=== PATIENT | male | born 1980 | race Caucasian/White ===

== ENCOUNTER 2018-04-27 04:54 | Emergency (ER) | payer SELFPAY ==
[2018-04-27] MEDS ORDERED: IBUPROFEN 200 MG TAB PO ONE (06:08)
--- NOTE | 2018-04-27 06:15 | EDPHYS ---
Physician Documentation [facility] Name: Chad Lundberg Age: 37 yrs Sex: Male : 1980 Arrival Date: 04/27/2018 Time: 04:58 Bed 20 Private MD: ED Physician Diego Avila HPI: 04/27 05:45 This 37 yrs old Male presents to ER via Wheelchair with complaints of Ankle king Injury. 05:45 The patient presents with decreased range of motion, pain, that is acute. The king complaints affect the right ankle. Onset: The symptoms/episode began/occurred 1 week(s) ago. Context: The problem was sustained at home, resulted from. Associated signs and symptoms: The patient has no apparent associated signs or symptoms. Modifying factors: The symptoms are alleviated by elevation of extremity, the symptoms are aggravated by movement. Severity of symptoms: At their worst the symptoms were moderate, in the emergency department the symptoms are unchanged. Historical: - Allergies: 05:00 No Known Allergies; jb4 - Home Meds: 05:00 None [Active]; jb4 - PMHx: 05:00 Hernia; jb4 - PSHx: 05:00 Hernia repair; jb4 - Immunization history:: Adult Immunizations not up to date. - Social history:: Smoking status: Patient uses tobacco products, denies chronic smoking, but will smoke occasionally, Patient uses alcohol, but reports only rare drinking. - Ebola Screening: : No symptoms or risks identified at this time. - Family history:: not pertinent. ROS: 05:45 Constitutional: Negative for fever, chills, and weight loss, Eyes: Negative for injury, king pain, redness, and discharge, ENT: Negative for injury, pain, and discharge, Neck: Negative for injury, pain, and swelling, Cardiovascular: Negative for chest pain, palpitations, and edema, Respiratory: Negative for shortness of breath, cough, wheezing, and pleuritic chest pain, Abdomen/GI: Negative for abdominal pain, nausea, vomiting, diarrhea, and constipation, Back: Negative for injury and pain, : Negative for injury, bleeding, discharge, and swelling, Skin: Negative for injury, rash, and discoloration, Neuro: Negative for headache, weakness, numbness, tingling, and seizure, Psych: Negative for depression, anxiety, suicide ideation, homicidal ideation, and hallucinations, Allergy/Immunology: Negative for hives, rash, and allergies, Endocrine: Negative for neck swelling, polydipsia, polyuria, polyphagia, and marked weight changes, Hematologic/Lymphatic: Negative for swollen nodes, abnormal bleeding, and unusual bruising. 05:45 MS/extremity: Positive for injury or acute deformity, decreased range of motion, of the right ankle and anterior aspect of right ankle. Exam: 05:45 Constitutional: This is a well developed, well nourished patient who is awake, alert, king and in no acute distress. Head/Face: Normocephalic, atraumatic. Eyes: Pupils equal round and reactive to light, extra-ocular motions intact. Lids and lashes normal. Conjunctiva and sclera are non-icteric and not injected. Cornea within normal limits. Periorbital areas with no swelling, redness, or edema. ENT: Nares patent. No nasal discharge, no septal abnormalities noted. Tympanic membranes are normal and external auditory canals are clear. Oropharynx with no redness, swelling, or masses, exudates, or evidence of obstruction, uvula midline. Mucous membranes moist. Neck: Trachea midline, no thyromegaly or masses palpated, and no cervical lymphadenopathy. Supple, full range of motion without nuchal rigidity, or vertebral point tenderness. No Meningismus. Chest/axilla: Normal chest wall appearance and motion. Nontender with no deformity. No lesions are appreciated. Cardiovascular: Regular rate and rhythm with a normal S1 and S2. No gallops, murmurs, or rubs. Normal PMI, no JVD. No pulse deficits. Respiratory: Lungs have equal breath sounds bilaterally, clear to auscultation and percussion. No rales, rhonchi or wheezes noted. No increased work of breathing, no retractions or nasal flaring. Abdomen/GI: Soft, non-tender, with normal bowel sounds. No distension or tympany. No guarding or rebound. No evidence of tenderness throughout. Back: No spinal tenderness. No costovertebral tenderness. Full range of motion. Male : Normal genitalia with no discharge or lesions. Skin: Warm, dry with normal turgor. Normal color with no rashes, no lesions, and no evidence of cellulitis. Neuro: Awake and alert, GCS 15, oriented to person, place, time, and situation. Cranial nerves II-XII grossly intact. Motor strength 5/5 in all extremities. Sensory grossly intact. Cerebellar exam normal. Normal gait. Psych: Awake, alert, with orientation to person, place and time. Behavior, mood, and affect are within normal limits. 05:45 Musculoskeletal/extremity: Extremities: noted in the right ankle and anterior aspect of right ankle: decreased ROM, pain. Vital Signs: 05:00 BP 131 / 88; Pulse 93; Resp 16; Temp 98.5(O); Pulse Ox 98% on R/A; Weight 81.65 kg (R); [facility] Height 5 ft. 10 in. (177.80 cm) (R); Pain 0/10; 06:00 BP 127 / 80; Pulse 90; Resp 16; Pulse Ox 97% on R/A; [facility] 05:00 Body Mass Index 25.83 (81.65 kg, 177.80 cm) [facility] MDM: 05:42 Patient medically screened. [facility] 05:49 Data reviewed: vital signs, nurses notes, radiologic studies, plain films. [facility] 04/27 05:38 Order name: XRAY Ankle RIGHT 3 view [facility] 04/27 05:45 Order name: Ice pack; Complete Time: 06:02 [facility] 04/27 06:14 Order name: Walking boot: short; Complete Time: 06:49 [facility] Administered Medications: 06:13 Drug: Motrin 600 mg Route: PO; [facility] 06:50 Follow up: Response: No adverse reaction; Pain is decreased [facility] Disposition: 04/27/18 06:15 Discharged to Home. Impression: Sprain of ankle - right. - Condition is Stable. - Discharge Instructions: Ankle Sprain. - Prescriptions for Ibuprofen 600 mg Oral Tablet - take 1 tablet by ORAL route every 6 hours As needed take with food; 20 tablet. Tylenol- Codeine #3 300-30 mg Oral Tablet - take 2 tablet by ORAL route every 6 hours As needed; 30 tablet. - Medication Reconciliation Form, Thank You Letter, Antibiotic Education, Prescription Opioid Use form. - Follow up: Private Physician; When: 2 - 3 days; Reason: Recheck today's complaints, Continuance of care, Re-evaluation by your physician. Follow up: Johnnie Raygoza MD; When: 2 - 3 days; Reason: Recheck today's complaints, Re-evaluation by your physician. - Problem is new. - Symptoms have improved. Signatures: Dispatcher [employer] Diego Sloan MD MD cha Bryson, James RN RN jb4 Corrections: (The following items were deleted from the chart) 06:16 06:15 04/27/2018 06:15 Discharged to Home. Impression: Sprain of ankle - right. king Condition is Stable. Forms are Medication Reconciliation Form, Thank You Letter, Antibiotic Education, Prescription Opioid Use. Follow up: Private Physician; When: 2 - 3 days; Reason: Recheck today's complaints, Continuance of care, Re-evaluation by your physician. Problem is new. Symptoms have improved. [facility] 06:52 06:16 04/27/2018 06:15 Discharged to Home. Impression: Sprain of ankle - right. jb4 Condition is Stable. Discharge Instructions: Ankle Sprain. Prescriptions for Ibuprofen 600 mg Oral Tablet - take 1 tablet by ORAL route every 6 hours As needed take with food; 20 tablet, Tylenol-Codeine #3 300-30 mg Oral Tablet - take 2 tablet by ORAL route every 6 hours As needed; 30 tablet. and Forms are Medication Reconciliation Form, Thank You Letter, Antibiotic Education, Prescription Opioid Use. Follow up: Private Physician; When: 2 - 3 days; Reason: Recheck today's complaints, Continuance of care, Re-evaluation by your physician. Follow up: Johnnie Raygoza; When: 2 - 3 days; Reason: Recheck today's complaints, Re-evaluation by your physician. Problem is new. Symptoms have improved. king
--- NOTE | 2018-04-27 06:15 | ER ---
Nurse's Notes [facility] Name: Chad Lundberg Age: 37 yrs Sex: Male : 1980 Arrival Date: 04/27/2018 Time: 04:58 Bed 20 Private MD: Diagnosis: Sprain of ankle-right Presentation: 04/27 05:00 Presenting complaint: Patient states: I fell from a ladder 2 weeks ago and injured my jb4 right ankle. I was about 6 feet in the air. I felt a pop in my right ankle and I still cannot put weight on it. 05:00 Transition of care: patient was not received from another setting of care. Onset of jb4 symptoms was April 14, 2017. Risk Assessment: Do you want to hurt yourself or someone else? Patient reports no desire to harm self or others. Initial Sepsis Screen: Does the patient meet any 2 criteria? HR > 90 bpm. Yes Does the patient have a suspected source of infection? No. Patient's initial sepsis screen is negative. Care prior to arrival: None. 05:00 Method Of Arrival: Wheelchair jb4 05:00 Acuity: LOUANN 4 jb4 Triage Assessment: 05:00 General: Appears in no apparent distress. comfortable, Behavior is calm, cooperative, jb4 appropriate for age. Pain: Complains of pain in right ankle Pain does not radiate. Pain currently is 0 out of 10 on a pain scale. at worst was 10 out of 10 on a pain scale. Quality of pain is described as sharp, Pain began 2 weeks ago Is intermittent, Alleviated by rest, Aggravated by weight bearing. EENT: No signs and/or symptoms were reported regarding the EENT system. Neuro: Level of Consciousness is awake, alert, obeys commands, Oriented to person, place, time, situation. Cardiovascular: Patient's skin is warm and dry. Respiratory: Airway is patent Respiratory effort is even, unlabored, Respiratory pattern is regular, symmetrical. GI: No signs and/or symptoms were reported involving the gastrointestinal system. : No signs and/or symptoms were reported regarding the genitourinary system. Derm: Skin is intact, Skin is pink, warm \T\ dry. Musculoskeletal: Circulation, motion, and sensation intact. Range of motion: limited in right ankle Swelling present in right ankle. Historical: - Allergies: 05:00 No Known Allergies; jb4 - Home Meds: 05:00 None [Active]; jb4 - PMHx: 05:00 Hernia; jb4 - PSHx: 05:00 Hernia repair; jb4 - Immunization history:: Adult Immunizations not up to date. - Social history:: Smoking status: Patient uses tobacco products, denies chronic smoking, but will smoke occasionally, Patient uses alcohol, but reports only rare drinking. - Ebola Screening: : No symptoms or risks identified at this time. - Family history:: not pertinent. Screenin:00 Abuse screen: Denies threats or abuse. Nutritional screening: No deficits noted. jb4 Tuberculosis screening: No symptoms or risk factors identified. Fall Risk Gait- Impaired (20 pts.). Total Pickard Fall Scale indicates No Risk (0-24 pts). Assessment: 05:00 General: see triage assessment. jb4 06:00 Reassessment: Patient appears in no apparent distress at this time. Patient and/or jb4 family updated on plan of care and expected duration. Pain level reassessed. Patient is alert, oriented x 3, equal unlabored respirations, skin warm/dry/pink. 06:50 Reassessment: Patient appears in no apparent distress at this time. Patient and/or jb4 family updated on plan of care and expected duration. Pain level reassessed. Patient is alert, oriented x 3, equal unlabored respirations, skin warm/dry/pink. Patient states feeling better. Vital Signs: 05:00 BP 131 / 88; Pulse 93; Resp 16; Temp 98.5(O); Pulse Ox 98% on R/A; Weight 81.65 kg (R); jb4 Height 5 ft. 10 in. (177.80 cm) (R); Pain 0/10; 06:00 BP 127 / 80; Pulse 90; Resp 16; Pulse Ox 97% on R/A; jb4 05:00 Body Mass Index 25.83 (81.65 kg, 177.80 cm) jb4 ED Course: 04:58 Patient arrived in ED. ag3 05:00 Arm band placed on left wrist. jb4 05:00 Patient has correct armband on for positive identification. Bed in low position. Call jb4 light in reach. Side rails up X 1. Pulse ox on. NIBP on. 05:05 Andrew Gasca, NATACHA is Primary Nurse. jb4 05:23 Triage completed. jb4 05:42 Diego Avila MD is Attending Physician. [facility] 06:08 X-ray completed. Portable x-ray completed in exam room. Patient tolerated procedure kw well. 06:09 XRAY Ankle RIGHT 3 view In Process Unspecified. EDMS 06:16 Johnnie Raygoza MD is Referral Physician. [facility] 06:50 No provider procedures requiring assistance completed. Patient did not have IV access jb4 during this emergency room visit. Administered Medications: 06:13 Drug: Motrin 600 mg Route: PO; jb4 06:50 Follow up: Response: No adverse reaction; Pain is decreased jb4 Outcome: 06:15 Discharge ordered by . [facility] 06:50 Discharged to home via wheelchair. jb4 06:50 Condition: stable 06:50 Discharge instructions given to patient, Instructed on discharge instructions, follow up and referral plans. medication usage, Demonstrated understanding of instructions, follow-up care, medications, Prescriptions given X 2. 06:52 Patient left the ED. jb4 Signatures: Dispatcher [employer] EDOR Diego Avila MD MD cha Whitley, Kimberlee kw Bryson, James, RN RN jb4 Estella Allred3
--- NOTE | 2018-04-27 09:50 | RAD REPORT ---
EXAM DESCRIPTION: RAD - Ankle Right 3 View - 04/27/2018 6:09 am CLINICAL HISTORY: Fall from ladder, ankle pain COMPARISON: None. FINDINGS: No fracture, dislocation or periosteal reaction. No joint effusion seen. No joint space na rrowing. Lateral and anterior soft tissue swelling is present IMPRESSION: Soft tissue swelling at the ankle. No fracture identified.
== END 2018-04-27 06:52 | disposition home or self-care (01) ==
LOC: ER 04:54
DX: S93.401A Sprain of unspecified ligament of right ankle, initial encounter (principal); X58.XXXA Exposure to other specified factors, initial encounter; Y93.9 Activity, unspecified; Y92.009 Unspecified place in unspecified non-institutional (private) residence as the place of occurrence of the external cause; Z72.0 Tobacco use
CPT/HCPCS: 99284

== ENCOUNTER 2019-06-20 08:00 | Emergency (ER) | payer SELFPAY ==
[2019-06-20 13:23] VITALS: TEMP 98.6
[2019-06-20 13:26] VITALS: BP 122/86; O2SAT 98
== END 2019-06-20 13:12 | disposition home or self-care (01) ==
LOC: ER 08:00
DX: R07.89 Other chest pain (principal); F17.210 Nicotine dependence, cigarettes, uncomplicated
CPT/HCPCS: 36415; 71045; 80048; 80076; 80307; 81003; 83735; 83880; 84484; 85025; 85610; 93005; 96374; 99285